=== PATIENT | female | born 2000 | race Caucasian/White ===

== ENCOUNTER 2024-02-04 12:11 | Outpatient (CLI) | payer OTHER, SELFPAY | END 2024-02-04 12:12 | disposition home or self-care (01) | LOC: LAB 12:13 | PROVIDERS: Visit Provider Nurse Practitioner Family | DX: R30.0 Dysuria (principal); N89.8 Other specified noninflammatory disorders of vagina | CPT/HCPCS: 87252 ==

== ENCOUNTER 2024-02-04 12:23 | Outpatient (CLI) | payer OTHER, SELFPAY ==
[2024-02-04 17:30] LABS: Chlamydia DNA Amplified* NOT DETECTED (No Detected); GC DNA Amplified* NOT DETECTED (No Detected)
== END 2024-02-04 12:24 | disposition home or self-care (01) ==
LOC: NFLDUCREF 12:24
PROVIDERS: Visit Provider Nurse Practitioner Family
DX: R30.0 Dysuria (principal); N89.8 Other specified noninflammatory disorders of vagina
CPT/HCPCS: 87086; 87491; 87591